=== PATIENT | female | born 1990 | race Caucasian/White ===

== ENCOUNTER 2016-09-23 22:25 | Emergency (ER) | payer OTHER ==
[~2016-09-23] VITALS: Ht 154.9 cm; Wt 75.5 kg
[~2016-09-23 22:25] MED LIST: BENADRYL ALLERG25 MG PO; BENADRYL50 MG PO; COLACE100 MG PO; DAILY VITAMIN1 EAC8 PO; ENDOCET 5-3251 EACH PO; FERROUS SULFAT325 MG PO; IBUPROFEN800 MG PO; MISOPROSTOL200 MCG PO; PERCOCET 5/31 TABLET PO; SEROQUEL50 MG PO; SERTRALINE HCL25 MG PO; TUMS500 MG PO; TYLENOL REGULA325 MG PO
[2016-09-23] MEDS ORDERED: NAPROSYN500 MG PO (23:21)
[2016-09-24 00:30] VITALS: BP 104/69
== END 2016-09-24 00:40 | disposition home or self-care (01) ==
LOC: EME 22:25
DX: S60.221A Contusion of right hand, initial encounter (principal); W20.8XXA Other cause of strike by thrown, projected or falling object, initial encounter; Y92.89 Other specified places as the place of occurrence of the external cause; Y99.0 Civilian activity done for income or pay; Z88.8 Allergy status to other drugs, medicaments and biological substances; Z88.1 Allergy status to other antibiotic agents
CPT/HCPCS: 73130; 99281; 99283